=== PATIENT | female | born 1970 | race Hispanic/Latino ===

== ENCOUNTER 2016-08-23 08:11 | Outpatient (CLI) | payer OTHER ==
[2016-08-23 08:40] LABS: #Basophils 0.1 thou/uL (0.0-0.2); #Eosinphils 0.2 thou/uL (0.0-0.7); #Lymphocytes 2.9 thou/uL (1.20-3.40); #Monocytes 0.5 thou/uL (0.11-0.59); #Neutrophils 4.9 thou/uL (1.40-6.50); %Eosinophils 2.1 % (0.0-10.0); %Lymphocytes 33.5 % (21.0-51.0); %Neutrophils 57.3 % (42.0-75.0); Hemoglobin 13.7 g/dL (12.0-16.0); Mean Corpuscular HGB CONC 33.3 g/dL (32.0-36.0); Mean Corpuscular Hemoglobin 28.5 pg (27.0-31.0); Mean Corpuscular Volume 85.6 fl (81.0-99.0); Mean Platelet Volume 9.6 fL (7.4-10.4); Platelet Count 280 thou/uL (130-400); RBC Distribution Width 13.2 % (11.5-14.5); White Blood Cell (WBC) Count 8.6 thou/uL (4.8-10.8)
[2016-08-23 08:54] LABS: Hemoglobin A1c 7.1 % (4.0-6.0)
[2016-08-23 09:03] LABS: ALT (SGPT) 22 U/L (0-55); AST (SGOT) 21 U/L (5-34); Albumin 4.5 g/dL (3.5-5.0); Alkaline Phosphatase 104 U/L (40-150); Anion Gap 16 mmol/L (10-20); BUN (Urea Nitrogen) 12 mg/dL (7.0-18.7); Bilirubin, Total 0.4 mg/dL (0.2-1.2); Calc. Creatinine Clearance 0 mL/min (70-130); Calcium 10.3 mg/dL (7.8-10.44); Carbon Dioxide 27 mmol/L (22-29); Cardiac Risk 3.6 (Less than 4.5); Chloride 102 mmol/L (98-107); Cholesterol 228 mg/dL (< 200 Desired); Estimated GFR-MDRD 89; Globulin 3.1 g/dL (2.4-3.5); Glucose 135 mg/dL (70-105); HDL Cholesterol 64 mg/dL (>60 Neg Risk); LDL Cholesterol, Calculated 142 mg/dL; Potassium 4.4 mmol/L (3.5-5.1); Protein, Total 7.6 g/dL (6.0-8.3); Sodium 141 mmol/L (136-145); Triglycerides 110 mg/dL (Less than 150)
[2016-08-23 18:38] LABS: Microalbumin Urine Less than 1.0 mg/dL (0.5-50.0); Microalbumin/Creat Ratio 10.2 mg/g (Less than 30)
== END 2016-08-23 08:12 ==
LOC: MADLABBHPM 08:11
PROVIDERS: ATTEND Family Medicine
DX: E11.9 Type 2 diabetes mellitus without complications (principal)
CPT/HCPCS: 36415; 80053; 80061; 82043; 83036; 84443; 85025